=== PATIENT | male | born 1995 | race Two or more races ===

== ENCOUNTER 2022-04-09 11:21 | Emergency (ER) | payer OTHER ==
[~2022-04-09] VITALS: Ht 167.6 cm; Wt 81.8 kg
[2022-04-09 17:48] VITALS: BP 124/73
== END 2022-04-09 18:18 | disposition home or self-care (01) ==
LOC: ER 11:21
DX: S93.401A Sprain of unspecified ligament of right ankle, initial encounter (principal); W22.8XXA Striking against or struck by other objects, initial encounter; Y93.89 Activity, other specified; Y92.69 Other specified industrial and construction area as the place of occurrence of the external cause; Y99.8 Other external cause status
CPT/HCPCS: 73610